=== PATIENT | female | born 1965 | race Caucasian/White ===

== ENCOUNTER 2016-06-16 10:25 | Day surgery (SDC) | payer OTHER ==
[~2016-06-16 10:25] MED LIST: OFLOXACIN 50 DROP BTL OT PRN; RINGERS SOLUTION,LACTATED 1,000 ML IV PRN
[2016-06-16] MEDS ORDERED: RINGERS SOLUTION,LACTATED 1,000 ML IV ONE (11:22)
[2016-06-16] MEDS ORDERED: MUPIROCIN 22 APPL TUBE TP ONE (12:22)
[2016-06-16] MEDS ORDERED: LIDOCAINE HCL/EPINEPHRINE 30 ML VIAL IJ ONE (12:22)
[2016-06-16 14:05] VITALS: BP 149/92
== END 2016-06-16 10:26 | disposition home or self-care (01) ==
LOC: AMB 10:25
PROVIDERS: ATTEND Allergy & Immunology
PROC: 09U777Z Supplement Right Tympanic Membrane with Autologous Tissue Substitute, Via Natural or Artificial Opening (ICD-10-PCS; principal; 2016-06-16 12:00)
DX: H70.891 Other mastoiditis and related conditions, right ear (principal); H72.91 Unspecified perforation of tympanic membrane, right ear; H92.21 Otorrhagia, right ear; I10 Essential (primary) hypertension; F17.200 Nicotine dependence, unspecified, uncomplicated; Z68.22 Body mass index [BMI] 22.0-22.9, adult